=== PATIENT | male | born 1970 | race Caucasian/White ===

== ENCOUNTER 2017-06-29 11:01 | Emergency (ER) | payer MEDICARE, MEDICAID ==
[~2017-06-29] VITALS: Ht 180.3 cm; Wt 68.0 kg
[~2017-06-29 11:01] MED LIST: CYCL-1 PO; DIPH25TA89 PO; EPIN0.3P17 IM; FAMO40TA73 PO; NAPR-1154 PO; ONDA4TAB12 PO; PRED50TA PO; SUCR1TAB34 PO
[2017-06-29 11:21] VITALS: BP 126/80
[2017-06-29] MEDS ORDERED: IBUP-1985 PO (12:10)
== END 2017-06-29 12:13 | disposition home or self-care (01) ==
LOC: ER 11:02
DX: M25.572 Pain in left ankle and joints of left foot (principal); G89.29 Other chronic pain; J44.9 Chronic obstructive pulmonary disease, unspecified; Z86.19 Personal history of other infectious and parasitic diseases; Z98.890 Other specified postprocedural states; Z88.5 Allergy status to narcotic agent; Z88.0 Allergy status to penicillin; Z91.040 Latex allergy status; Z79.899 Other long term (current) drug therapy
CPT/HCPCS: 29515; 73610; 99284

== ENCOUNTER 2017-09-03 14:12 | Emergency (ER) | payer MEDICARE, MEDICAID ==
[~2017-09-03] VITALS: Ht 172.7 cm; Wt 58.6 kg
[~2017-09-03 14:12] MED LIST changes: +IBUP-1985 PO
[2017-09-03 14:15] VITALS: BP 136/81
[2017-09-03] MEDS ORDERED: IBUP-1984 PO (14:43)
== END 2017-09-03 14:54 | disposition home or self-care (01) ==
LOC: ER 14:12
DX: S93.402A Sprain of unspecified ligament of left ankle, initial encounter (principal); J44.9 Chronic obstructive pulmonary disease, unspecified; Z88.5 Allergy status to narcotic agent; Z88.0 Allergy status to penicillin; Z91.040 Latex allergy status; Z79.899 Other long term (current) drug therapy; X50.1XXA Overexertion from prolonged static or awkward postures, initial encounter; Y93.89 Activity, other specified; Y92.89 Other specified places as the place of occurrence of the external cause; Y99.8 Other external cause status
CPT/HCPCS: 73590; 73610; 99284

== ENCOUNTER 2018-01-10 15:11 | Emergency (ER) | payer MEDICARE, MEDICAID ==
[~2018-01-10] VITALS: Ht 177.8 cm; Wt 68.2 kg
[~2018-01-10 15:11] MED LIST changes: +SULF1TAB49 PO
[2018-01-10 15:59] VITALS: BP 134/73
== END 2018-01-10 16:38 | disposition home or self-care (01) ==
LOC: ER 15:45
DX: L03.114 Cellulitis of left upper limb (principal); L03.113 Cellulitis of right upper limb; L02.512 Cutaneous abscess of left hand; L02.511 Cutaneous abscess of right hand; R51 Headache; J44.9 Chronic obstructive pulmonary disease, unspecified; G89.29 Other chronic pain; Z98.890 Other specified postprocedural states; Z86.19 Personal history of other infectious and parasitic diseases; Z88.5 Allergy status to narcotic agent; Z88.0 Allergy status to penicillin; Z88.6 Allergy status to analgesic agent; Z91.040 Latex allergy status; Z79.899 Other long term (current) drug therapy
CPT/HCPCS: 99282

== ENCOUNTER 2018-01-26 19:09 | Emergency (ER) | payer MEDICARE, MEDICAID ==
[~2018-01-26] VITALS: Ht 177.8 cm; Wt 66.0 kg
[~2018-01-26 19:09] MED LIST changes: -SULF1TAB49 PO
[2018-01-26 19:18] VITALS: BP 124/75
[2018-01-26] MEDS ORDERED: acetaminophen 325mg tablet PO ONE (20:55)
[2018-01-26] MEDS ORDERED: dexamethasone 4mg tablet PO ONE (20:55)
== END 2018-01-26 21:17 | disposition home or self-care (01) ==
LOC: ER 19:09
DX: M25.571 Pain in right ankle and joints of right foot (principal); J44.9 Chronic obstructive pulmonary disease, unspecified; G89.29 Other chronic pain; Z98.890 Other specified postprocedural states; Z88.5 Allergy status to narcotic agent; Z88.0 Allergy status to penicillin; Z88.6 Allergy status to analgesic agent; Z91.040 Latex allergy status; Z79.899 Other long term (current) drug therapy; X50.1XXA Overexertion from prolonged static or awkward postures, initial encounter; Y93.89 Activity, other specified; Y92.89 Other specified places as the place of occurrence of the external cause; Y99.8 Other external cause status
CPT/HCPCS: 73610; 99283; J8540

== ENCOUNTER 2018-02-04 18:04 | Emergency (ER) | payer MEDICARE, MEDICAID ==
[~2018-02-04] VITALS: Ht 177.8 cm; Wt 68.2 kg
[2018-02-04 18:40] VITALS: BP 124/86
== END 2018-02-04 19:52 | disposition left against medical advice (07) ==
LOC: ER 18:04
DX: L02.414 Cutaneous abscess of left upper limb (principal); Z53.21 Procedure and treatment not carried out due to patient leaving prior to being seen by health care provider

== ENCOUNTER 2018-03-03 20:06 | Emergency (ER) | payer MEDICARE, MEDICAID ==
[~2018-03-03] VITALS: Ht 177.8 cm; Wt 69.5 kg
[2018-03-03 20:14] VITALS: BP 155/89
--- NOTE | 2018-03-03 22:41 | NUR ---
NO RSPONSE FROM LOBBY AFTER 3 ATTEMPTS TO ROOM. CALL PLACED AND MESSAGE LEFT EXPRESSING CONCERN FOR PT.S WELL BEING AND TO ENCOURAGE TO RETURN TO THE ED FOR EVAL. DR LUX INFORMED.
== END 2018-03-03 22:42 | disposition left against medical advice (07) ==
LOC: ER 20:07
DX: R07.9 Chest pain, unspecified (principal); R05 Cough; Z53.21 Procedure and treatment not carried out due to patient leaving prior to being seen by health care provider

== ENCOUNTER 2018-03-26 18:42 | Emergency (ER) | payer MEDICARE, MEDICAID ==
[~2018-03-26] VITALS: Ht 177.8 cm; Wt 70.0 kg
[2018-03-26 19:06] VITALS: BP 126/85
--- NOTE | 2018-03-26 21:40 | NUR ---
NO RESPONSE FROM LOBBY AFTER 3 ATTEMPT TO ROOM. CALL PLACED TO NUMBER ON FILE MESSAGE REPORTS NUMBER DISCONNECTED. DR MARTINEZ INFORMED.
== END 2018-03-26 19:50 | disposition left against medical advice (07) ==
LOC: ER 18:42
DX: J02.9 Acute pharyngitis, unspecified (principal); Z53.21 Procedure and treatment not carried out due to patient leaving prior to being seen by health care provider

== ENCOUNTER 2018-04-29 13:28 | Emergency (ER) | payer MEDICARE, MEDICAID ==
--- NOTE | 2018-04-29 14:07 | NUR ---
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
--- NOTE | 2018-04-29 18:16 | NUR ---
PT CALLED TO TRIAGE X4, PT NOT IN LOBBY. PT WAS CALLED, NO ANSWER BUT MESSAGE LEFT AND PT WAS INVITED TO RETURN TO ER FOR EVALUATION OF KNEE INJURY AND WE WOULD DO OUR BEST TO GET HIM IN SOON. DR LAMAR AWARE.
== END 2018-04-29 18:16 | disposition left against medical advice (07) ==
LOC: ER 13:29
DX: M25.569 Pain in unspecified knee (principal); Z53.21 Procedure and treatment not carried out due to patient leaving prior to being seen by health care provider

== ENCOUNTER 2019-10-14 22:03 | Emergency (ER) | payer MEDICARE, MEDICAID ==
[~2019-10-14] VITALS: Ht 177.8 cm; Wt 68.2 kg
[2019-10-14 23:35] VITALS: BP 109/75
== END 2019-10-14 23:30 | disposition home or self-care (01) ==
LOC: ER 22:04
DX: M25.561 Pain in right knee (principal); J44.9 Chronic obstructive pulmonary disease, unspecified; G89.29 Other chronic pain; Z98.890 Other specified postprocedural states; Z86.19 Personal history of other infectious and parasitic diseases; Z88.5 Allergy status to narcotic agent; Z88.0 Allergy status to penicillin; Z88.6 Allergy status to analgesic agent; Z79.899 Other long term (current) drug therapy
CPT/HCPCS: 73564; 99283